=== PATIENT | female | born 1995 | race Caucasian/White ===

== ENCOUNTER 2016-05-20 15:01 | Emergency (ER) | payer OTHER ==
[2016-05-20] MEDS ORDERED: ONDANSETRON DISINTEGRATING 4 MG TAB PO ONE (15:09)
--- NOTE | 2016-05-20 15:55 | EDPHY ---
HPI/HX/ROS/PE/MDM Narrative: CHIEF COMPLAINT: Abdominal pain, vaginal spotting, . HISTORY OF PRESENT ILLNESS: The patient is a 20-year-old female currently who presents with abdominal pain and vaginal spotting for the past day. She does not know how far along her is but her LNMP ended April 09. She reports associated "white bloody isaac" that discharged from her vagina during urination. The abdominal pain is described as a tightness and does not radiate. She admits vomiting x2 today No fever, chills , chest pain, shortness of breath, palpitations, diarrhea, urinary complaints, headache, lightheadedness. She was diagnosed with chlamydia 2 months ago and took her antibiotics, but her partner did not receive antibiotics. Denies passage of clots or tissue. Scant bleeding only. Patient also reports vaginal discharge. REVIEW OF SYSTEMS: Aside from elements discussed in the HPI, a comprehensive 10-point review of systems was reviewed and is negative. PAST MEDICAL HISTORY: Chlamydia. [id number] SOCIAL HISTORY: Former smoker, former alcohol use. VITAL SIGNS: Reviewed by me GENERAL: Well-developed, well-nourished, resting comfortably in no respiratory distress. HEENT: Atraumatic. Eyes: No icterus, no injection. Mouth: moist mucous membranes. No erythema or lesions. Neck: supple with no adenopathy. LUNGS: Clear to auscultation bilaterally, no wheezes, rhonchi or rales. CARDIAC: Regular rate and rhythm, no rubs, murmurs or gallops. ABDOMEN: Soft, nondistended, bowel sounds normal. LLQ tenderness. BACK: No CVA tenderness. PELVIC: Moderate amount of white, frothy discharge in vault. No bleeding visualized. Os closed. Mild left adnexal tenderness, no CMT. EXTREMITIES: No trauma. No edema. Range of motion is normal throughout. NEURO: Alert and oriented, grossly nonfocal. SKIN: Warm and dry, no rash. PSYCHIATRIC: Normal mentation, no agitation. Portions of this note were transcribed by a medical advisor. I personally performed a history, physical exam, medical decision making, and confirmed accuracy of information the transcribed note. ED Course: An IV was established and labs ordered. We will obtain a urine sample as well. Obstetrics ultrasound ordered. 1L IV saline administered for hydration along with 4mg Zofran ODT. 1731: Obstetric ultrasound results conveyed to me by the staff radiologist. Study reveals a gestational sac and yolk sac but no pole. The patient's BHCG quant is over 20,000. 1743: Consulted with Dr. Ellison, STUDIO OPERATOR. She recommends pelvic exam. She will see the patient in her office this week. The patient has been provided her telephone number. She is to arrive a few hours prior to the appointment to have a repeat BHCG quantitative lab checked. I discussed this with the patient and she is comfortable with the plan. Study: Obstetrics ultrasound. Indication: , vaginal spotting. Results: Probable early intrauterine with gestational sac and yolk sac. Dating by ultrasound is 5 weeks 5 days with date by LMP of 6 weeks 4 days. Recommend follow-up as no pole is visualized. No evidence for subchorionic hemorrhage. The study was read by the radiologist, Dr. Sanchez. I viewed the images myself on the PACS system. MDM: 20 year old with vaginal discharge and spotting in early . Ultrasound does not demonstrate an IUP; patient quant elevated at greater than 20,000. No adnexal masses or secondary signs of ectopic . Discussed possibilities including blighted ovum, ectopic , miscarriage with patient. Explained my concerns that this may not be a viable , but that close follow up is needed. Will presumptively treat with clindamycin for BV given patients discharge. Follow up with Dr Ellison without fail in 2 days. Return precautions discussed at length. Patient O positive. - Data Points Laboratory Results: Laboratory Results 05/20/16 16:25 05/20/16 16:25 Medications Given: Discontinued Medications Clindamycin (Cleocin 150 Mg Prepack#6) 1 btl TAKEHOME EDNOW ONE PRN Reason: Protocol Stop: 05/20/16 19:09 Last Admin: 05/20/16 19:13 Dose: 1 btl Sodium Chloride (Ns) 1,000 mls @ 0 mls/hr IV ONCE ONE PRN Reason: Wide Open Stop: 05/20/16 16:05 Last Admin: 05/20/16 16:28 Dose: 1,000 mls Ondansetron HCl (Zofran Odt) 4 mg PO EDNOW ONE Stop: 05/20/16 15:10 Last Admin: 05/20/16 15:11 Dose: 4 mg Microbiology Results: MICROBIOLOGY 05/20/16 17:00 Urine,Clean Catch Urine Culture - Final Five Or More Soper Types General Time Seen by Provider: 05/20/16 15:48 Initial Vital Signs: Initial Vital Signs Temperature (C) 36.8 C 05/20/16 15:07 Heart Rate 74 05/20/16 15:07 Respiratory Rate 18 05/20/16 15:07 Blood Pressure 127/59 H 05/20/16 15:07 O2 Sat (%) 96 05/20/16 15:07 O2 Delivery Mode Room Air Allergies/Adverse Reactions: No Known Allergies Allergy (Unverified 05/20/16 15:06) Home Medications: Medication Instructions Recorded Clindamycin HCl 300 mg PO BID #14 capsule 05/20/16 Departure - Departure Disposition: Home, Routine, Self-Care Clinical Impression: Threatened miscarriage, Bacterial vaginosis Condition: Good Instructions: Threatened Miscarriage (ED), Bacterial Vaginosis (ED) Additional Instructions: Call Dr. Ellison, STUDIO OPERATOR on Saturday to set up a follow up appointment. Show up a few hours early to have blood work drawn as we discussed. Take Clindamycin 500mg two times daily as prescribed. Return to the emergency department if you experience any serious worsening of condition. Referrals: Beverly Ellison MD [Medical Doctor] - As per Instructions Prescriptions: Clindamycin HCl 300 mg PO BID #14 capsule Report Scribed for: Shanthi Ledbetter Report Scribed by: Arik Palomino Date of Report: 05/20/16 Time of Report: 15:54
[2016-05-20] MEDS ORDERED: NS 1,000 ML IV ONE (16:04)
[2016-05-20 16:31] LABS: % IMMATURE GRANULYOCYTES 0.3 % (0.0-1.1); ABSOLUTE IMMATURE GRANULOCYTES 0.03 10^3/uL (0.00-0.10); ADD DIFF? NO; ADD MORPH? NO; ADD SCAN? NO; ATYPICAL LYMPHOCYTE FLAG 10 (0-99); FRAGMENT RBC FLAG 0 (0-99); HEMATOCRIT 40.7 % (38.0-47.0); HEMOGLOBIN 14.4 g/dL (12.6-16.3); LEFT SHIFT FLG 0 (0-99); LIPEMIA HEMOLYSIS FLAG 90 (0-99); MEAN CELL HEMOGLOBIN CONCENTR. 35.4 g/dL (32.4-36.7); MEAN CELL VOLUME 93.1 fL (81.5-99.8); MEAN PLATELET VOLUME 10.1 fL (8.7-11.7); PLATELET CLUMPS FLAG 20 (0-99); PLATELET COUNT 246 10^3/uL (150-400); RED BLOOD CELL COUNT 4.37 10^6/uL (4.18-5.33)
[2016-05-20 16:43] LABS: ANION GAP 11 mEq/L (8-16); CALCIUM 9.6 mg/dL (8.5-10.4); CARBON DIOXIDE 23 mEq/l (22-31); CHLORIDE 105 mEq/L (97-110); CREATININE 0.7 mg/dL (0.6-1.0); GLOMERULAR FILTRATION RATE > 60; GLUCOSE 79 mg/dL (70-100); POTASSIUM 4.2 mEq/L (3.5-5.2); SODIUM 139 mEq/L (134-144)
[2016-05-20 17:18] LABS: COLOR YELLOW; LEUKOCYTE ESTERASE,URINE NEGATIVE (NEGATIVE); NITRITE,URINE NEGATIVE (NEGATIVE)
[2016-05-20] MEDS ORDERED: CLINDAMYCIN 150MG PREPACK#6 BTL TAKEHOME ONE (19:08)
[2016-05-20 19:15] VITALS: BP 110/62; PULSE 65; RESP 16; TEMP 97.9; O2SAT 100
[2016-05-21 13:04] LABS: CHLAMYDIA AMPLIFICATION GENPRB NEGATIVE (NEGATIVE)
== END 2016-05-20 19:14 | disposition home or self-care (01) ==
DX: O20.0 Threatened abortion (principal); O23.591 Infection of other part of genital tract in pregnancy, first trimester; B96.89 Other specified bacterial agents as the cause of diseases classified elsewhere; Z3A.01 Less than 8 weeks gestation of pregnancy; Z87.891 Personal history of nicotine dependence